=== PATIENT | female | born 1985 | race African-American/Black ===

== ENCOUNTER → 2016-08-03 | Outpatient (CLI) | payer OTHER ==
--- NOTE | 2016-08-03 14:30 | REP ---
Clinical: Anatomical evaluation. Comparison: 07/13/2016 . Findings: Examination demonstrates diamniotic dichorionic twin gestation. Placenta for twin A is noted posteriorly and grade zero, and placenta for twin B is noted anteriorly and grade zero. There is no evidence for placenta previa or abruption. Cervix measures 4 cm length and appears closed. Gestational age by first ultrasound 19 weeks 1 day with NEFTALY 12/27/2016. Twin A: Cephalic presentation along the maternal midline closest to the internal os. motion is appreciated. Amniotic fluid volume is subjectively normal. heart rate equals 153 beats per minute. Age by current biometrical measurements equals 19 weeks 4 days. Estimated weight equals 312 grams (72nd percentile). Anatomical assessment demonstrates normal cranium, choroid plexus, cavum, cerebellum/posterior fossa, lungs, four-chamber heart, diaphragm, stomach, cord insertion, bladder, spine, and lower extremities. Limited evaluation of the facial features, cardiac ventricular outflow tracts, three-vessel cord, kidneys, and upper extremities noted. Twin B: Transverse lie closest to the fundus. motion is appreciated. Amniotic fluid volume is subjectively normal. heart rate equals 150 beats per minute. Age by current biometrical measurements equals 18 weeks 6 days. Estimated weight equals 281 grams (55th percentile). Anatomical assessment demonstrates a normal cranium, cord plexus, cavum, lungs, four-chamber heart, diaphragm, cord insertion, bladder, and extremities. Limited evaluation of the cerebellum/posterior fossa, facial features, cardiac ventricular outflow tracts, stomach, three-vessel cord, kidneys and spine noted. Impression: Diamniotic dichorionic twin gestations demonstrating concordant appropriate growth. No gross abnormalities are identified. Anatomical limitations as detailed above may warrant reevaluation and follow-up. Signed by William Mcbride MD 08/03/2016 02:21 P
== END ==
LOC: M RAD 13:03
PROVIDERS: ATTEND Advanced Practice Midwife
DX: Z36 Encounter for antenatal screening of mother (principal); Z3A.19 19 weeks gestation of pregnancy

== ENCOUNTER → 2016-09-19 | Outpatient (CLI) | payer OTHER ==
--- NOTE | 2016-09-19 13:20 | REP ---
Obstetric sonography: Multiple gestation. History: Twin gestation 20+ weeks, followup anatomy. Comparison study August 03, 2016 Findings: Scanning again demonstrates diamniotic dichorionic twin gestation. A posterior placenta is seen for twin A and an anterior placenta is seen for twin B, grade 1. No evidence of previa. Closed cervical length is 4.0 cm measured transabdominally. There has been concordant and appropriate interval growth. Twin A is vertex in position along the maternal midline. Twin B is transverse with the head to the maternal right. Amniotic fluid is subjectively normal. Deepest pocket of amniotic fluid around twin A measures 5.7 cm, that around twin B 6.7 cm. No extrauterine abnormality is observed. No anomaly is seen. The following anatomic structures are identified for twin A and felt to be unremarkable: cranium, choroid plexus, cavum, cerebellum and posterior fossa, face and profile, lungs, diaphragm, left-sided stomach, abdominal wall cord insertion, three-vessel cord, kidneys and bladder, spine, upper and lower extremities. heart views are less than optimally achieved for twin A today. Four-chamber heart and left ventricular outflow tract views were achieved previously. The following anatomic structures are identified in twin B and are felt to be unremarkable today: cranium, choroid plexus, cavum, cerebellum and posterior fossa, diaphragm, left-sided stomach, abdominal wall cord insertion, three-vessel umbilical cord, kidneys and bladder, spine, upper and lower extremities. heart and nose and lip views and lungs are less than optimally seen today due to position. Four-chamber heart view and lungs were achieved previously for twin B. Biometry chart twin A: BPD 6.5 cm 26 weeks 1 day Head circumference 24.5 cm 26 weeks 4 days Abdominal circumference 22.0 cm 26 weeks 3 days Femur length 5.0 cm 26 weeks 5 days Humeral length 4.7 cm 27 weeks 3 days HC/AC ratio normal 1.11 Cephalic index normal 0.72. Estimated weight 950 grams, 2 pounds 1 ounce, 63rd percentile. heart rate 139 beats per minute. BLANCO 5.7. S/D ratio in the umbilical cord artery by Doppler 3.22. Biometry chart twin B: BPD 6.3 cm 25 weeks 4 days Head circumference 23.7 cm 25 weeks 6 days Abdominal circumference 23.0 cm 27 weeks 2 days Femur length 4.8 cm 26 weeks 2 days Humeral length 4.5 cm 26 weeks 3 days HC/AC ratio normal 1.03. Cephalic index normal 0.74. Estimated weight 970 grams, 2 pounds 2 ounces, 67th percentile. heart rate 150 beats per minute. BLANCO 6.7 cm. S/D ratio in the umbilical cord artery by Doppler normal 3.07. Impression: Viable twin intrauterine gestation at 25 week 6 days by comparison with prior sonography. Appropriate and concordant interval growth. cardiac views less than optimally seen in both fetuses and less than optimal visualization of fetus B face and lungs. Otherwise, anatomic survey is felt to be complete. Signed by Alfie Rincon MD 09/19/2016 03:35 P
== END ==
LOC: M RAD 10:34
PROVIDERS: ATTEND Obstetrics & Gynecology
DX: Z36 Encounter for antenatal screening of mother (principal); Z3A.25 25 weeks gestation of pregnancy

== ENCOUNTER 2016-10-13 18:13 | Outpatient (CLI) | payer OTHER ==
[~2016-10-13] VITALS: Ht 167.6 cm; Wt 120.0 kg
[2016-10-13] MEDS ORDERED: CYCLOBENZAPRINE PO (18:47)
[2016-10-13] MEDS ORDERED: ACET50TA PO (18:47)
[2016-10-13] MEDS ORDERED: PRENTAB9 PO (18:47)
[2016-10-13 18:56] VITALS: BP 131/74
[2016-10-13 21:38] LABS: MEAN CORPUSCULAR HEMOGLOBIN 29.2 pg (27.0-33.0); MEAN CORPUSCULAR HGB CONC 35.2 g/dl (32.0-36.5); WHITE BLOOD COUNT 10.1 K/mm3 (4.0-10.0)
[2016-10-13 22:05] LABS: ALBUMIN 2.8 GM/DL (3.2-5.2); ALBUMIN/GLOBULIN RATIO 0.67 (1.00-1.93); ALKALINE PHOSPHATASE 175 U/L (45-117); ALT/SGPT 38 U/L (12-78); AMYLASE 69 U/L (25-115); ANION GAP 10 MEQ/L (8-16); AST/SGOT 29 U/L (15-37); BILIRUBIN,TOTAL 0.3 MG/DL (0.2-1.0); BLOOD UREA NITROGEN 3 MG/DL (7-18); CALCIUM LEVEL 8.6 MG/DL (8.5-10.1); CARBON DIOXIDE LEVEL 22 MEQ/L (21-32); CHLORIDE LEVEL 106 MEQ/L (98-107); CREATININE FOR GFR 0.57 MG/DL (0.55-1.02); GLOMERULAR FILTRATION RATE > 60.0 (>60); GLUCOSE, FASTING 88 MG/DL (70-105); POTASSIUM SERUM 3.7 MEQ/L (3.5-5.1); SODIUM LEVEL 138 MEQ/L (136-145)
== END 2016-10-14 00:25 | disposition home or self-care (01) ==
LOC: M LDO 18:13
PROVIDERS: ATTEND Obstetrics & Gynecology
DX: O47.1 False labor at or after 37 completed weeks of gestation (principal); Z3A.29 29 weeks gestation of pregnancy; O30.043 Twin pregnancy, dichorionic/diamniotic, third trimester; O99.843 Bariatric surgery status complicating pregnancy, third trimester; O99.213 Obesity complicating pregnancy, third trimester; O99.013 Anemia complicating pregnancy, third trimester; D57.3 Sickle-cell trait; Z86.718 Personal history of other venous thrombosis and embolism

== ENCOUNTER → 2016-11-14 | Outpatient (CLI) | payer OTHER ==
[~2016-11-14] MED LIST: ACET50TA PO; CYCLOBENZAPRINE PO; PRENTAB9 PO
--- NOTE | 2016-11-14 15:41 | REP ---
ultrasound, stat request for nonreactive nonstress test, biophysical profile: There is a twin gestation. Twin A : heart rate is 149 beats per minute. Cervix is 3.4 cm length. biophysical profile: breathing 2, movement 2, amniotic fluid volume 2, tone 2, total 8/8 Umbilical artery Doppler assessment: SD ratio 2.93. Resistive index of 0.66. Diastolic flow velocity 24.2 cm/sec. These values are normal. Based on the first ultrasound during this gestation gestational age is 33 weeks 6 days. Twin B: heart rate is 147 beats per minute. Cervix is 3.4 cm length. biophysical profile: breathing 2, movement 2, tone 2, amniotic fluid volume 2, total 8/8. Umbilical artery Doppler assessment: SD ratio 2.84, resistive index of 0.65, Diastolic flow velocity 12.7 cm/sec (normal is greater than 10.0). Twin A the amniotic fluid, deepest pocket is 3.2 cm, and twin B amniotic fluid deepest pocket is 2.9 cm. Twin A placenta is posterior. Twin B placenta is anterior. Both placentas demonstrate grade 2 maturity. There is no evidence of placenta previa. Signed by Zaire Proctor MD 11/14/2016 03:32 P
== END ==
LOC: M RAD 13:49
PROVIDERS: ATTEND Obstetrics & Gynecology
DX: Z36 Encounter for antenatal screening of mother (principal); Z3A.33 33 weeks gestation of pregnancy

== ENCOUNTER 2016-11-28 09:56 | Inpatient (IN) | payer OTHER ==
[2016-11-28] VITALS (10 sets, daily range): BP systolic 156–190; BP diastolic 77–98
[~2016-11-28] VITALS: Ht 165.1 cm; Wt 118.0 kg
[2016-11-28] MEDS ORDERED: LOVE1INJ SC (11:46)
[2016-11-28] MEDS ORDERED: LACTATED RINGER'S 1000 ML IV STA (12:01)
[2016-11-28] MEDS ORDERED: BICITRA 30ML SOLN UDC PO ONE (12:15)
[2016-11-28] MEDS ORDERED: CALCIUM GLUCONATE 1,000 MG in D5W MINI-BAG PLUS 100 ML IV PRN (12:15)
[2016-11-28] MEDS ORDERED: MAG Sulf (L&D) 4 GM/100 ML 4 GM in APPROPRIATE DILUENT 1 EA IV ONE (12:15)
[2016-11-28] MEDS: MAG Sulf (OBGYN) 20GM/500ML 20,000 MG in APPROPRIATE DILUENT 1 EA IV SCH ×3 (12:49→20:59)
--- NOTE | 2016-11-28 12:49 | HPEPDOC ---
Obstetrical History & Physical General Date of Admission November 28, 2016 at 11:30 History of Present Illness 30 y/o at 35+2 with IVF twins presents for NST and elevated BP's noted. No VB/LOF/ctx's. Pos FM. This AM had Pre-E labs based on elevated BP's noted at last visit on 3MAY. Denies NEWTON/vis changes/RUQ pain. Lab review shows that she has early onset lab changes consistent with Pre-E. Complicated Problem list: -Obesity, is on daily ASA 81 mg -Very poor historian -IVF Twins, di/di (male/female), last grth scan 19APR showed A: 63%ile and B: 45 %ile. Has been getting APFT consisting of Cat 1 NST's or a BPP weekly ( frequently needed due to obesity, difficulty monitoring). Today TAUS shows A: Vtx, B: Breech. Both infants active on US and NST is Cat 1 X2. -Unclear h/o clots/DVT??? Had a gastric bypass in 2006 and 4 months thereafter developed "clots" for which she was rx'd lovenox but since then has been hit/ miss on her therapy. States she gets them "all the time" because she gets red spots on her leg and they are sometimes painful. Has been maintained on Lovenox 40 mg qday throughout her and the plan was to transition her to heparin at 36 weeks prior to her scheduled IOL or at 38 wks. Last injection was 3 days ago becuase "she ran out." She states she forgot to tell her last provider that she needed more. -H/O Gastric bypass in 2006 -Sickle trait, is neg -A1 Gest DM. Blood sugar review over the last 2 weeks is excellent. 27feb A1C : 5.11 -New dx of CHTN with SI Pre-E (severe features only lab abnormalities) made today based on persistent mild range elevated BP's now and elevated BP's on 3MAY , 8MAR, 5JAn. Abnormal labs today are 24 hr UP: 1,023, Uric acid 6.8 (hi), AST 51 and ALT 79 (both barely hi). Nl labs: Hct 32.9, Plt 182, LDH 580, Cr 0.7. Plan to start Mag Sulfate until delivered Information Provided By: Patient Care Care: Good Care Dating Final EDC: Dec 31, 2016 Final EDC by: LMP (multiple ultrasounds throughout) Past Medical History Past Obstetrical History : Past Obstetrical History: Multigravida DIRECTOR APPOINTMENT History: Spontaneous (1 documented in 2015, 1 documented in 2014) Past Medical History Medical History see problem list above Surgical History: Other (Gastric bypass 2007, kidney surgery for reflux age 15) Family History Significant Family History: No pertinent family hx Social History Marital Status: Family situation: Spouse/partner home Psychosocial History: No pertinent psych hx * Smoker: non-smoker Alcohol: Denies Drugs: denies Abuse Violence Screening Have you been hit/kicked/slapp: No Have you been sexually assault: No Imunizations Tdap status: current Influenza Status: current Allergies Coded Allergies: No Known Allergies (Unverified , 10/13/16) Medications Scheduled Multivitamins/ ( 27-0.8 mg) 1 Tab Tab, 1 TAB PO DAILY Scheduled PRN Acetaminophen (Mapap) 500 Mg Tab, 500 MG PO DAILY PRN for PAIN SCALE 1-5 Physical Examination Physical Examination GENERAL: Alert and oriented times three. ABDOMEN: Gravid and non-tender to touch. FETI: A: Vtx and B: breech by limited bedside US today. HEART RATE: Regular rate and rhythm. LUNGS: Clear to auscultation (CTA). EXTREMITIES: No edema. No clonus. Deep tendon reflexes (DTRs) 1+ Laboratory Data Urine Culture: No Growth Pertinent Laboratoy Data Blood Type: B+ RBC Antibody Screen: Negative HIV: Negative Hepatitis B: Negative Hepatitis C: Unknown Rapid Plasma Reagin: Nonreactive Rubella: Immune Varicella: Nonreactive Chlamydia/Gonorrhea: Negative Group B Streptococcus: Unknown Quad Screen Test: Declined Cystic Fibrosis: Declined Glucose Tolerance Test: 102 Anatomy Ultrasound Normal Anatomy: Yes Placenta Previa: No Other Ultrasounds see problem list above for latest US results, had a grth scan every 4-6 wks per [facility] recs. Steroid Therapy Steroid Therapy: No Vaginal Examination Presentation: Cephalic presentation (A, B: Breech) Assessment Variability: Moderate Accelerations: Positive Decelerations: None Tocometer Contractions: Yes Frequency: irregular Assessment/Plan Assessment Plan See problem list above Admit and orient. Ate at 0900. Flight Test Engineer and consent for indicated after 6-8 hrs since last meal Labs and intravenous (IV) per unit protocol. Lactated Ringers (LR): Bolus 500 mL, then at 125 mL/hr. Plan on daily Lovenox and ASA restart 12-24 hrs after depending on case findings. Bicitra, Ancef 2 gm IV preop Spoke with Anesth reservation manager Dr Guidry and Dr Garibay, Peds due to pending NICU admissions Rpt Pre-E labs tomorrow. Mag sulfate 4/2, will cont until 24 hrs postop. Sessions MD SESSIONS,JEANNA Pillai MD November 28, 2016 12:49
[2016-11-28 12:50] LABS: MEAN CORPUSCULAR HEMOGLOBIN 28.5 pg (27.0-33.0); MEAN CORPUSCULAR VOLUME 86.4 fl (80.0-96.0); RED CELL DISTRIBUTION WIDTH 13.2 % (11.5-14.5); WHITE BLOOD COUNT 7.8 K/mm3 (4.0-10.0)
[2016-11-28 12:56] LABS: ALT/SGPT 68 U/L (12-78); ANION GAP 7 MEQ/L (8-16); AST/SGOT 56 U/L (15-37); BILIRUBIN,TOTAL 0.3 MG/DL (0.2-1.0); BLOOD UREA NITROGEN 4 MG/DL (7-18); CALCIUM LEVEL 8.8 MG/DL (8.5-10.1); CARBON DIOXIDE LEVEL 24 MEQ/L (21-32); CHLORIDE LEVEL 109 MEQ/L (98-107); GLOMERULAR FILTRATION RATE > 60.0 (>60); GLUCOSE, FASTING 70 MG/DL (70-105); POTASSIUM SERUM 4.3 MEQ/L (3.5-5.1); SODIUM LEVEL 140 MEQ/L (136-145); URIC ACID 6.9 MG/DL (2.6-6.0)
[2016-11-28] MEDS: LR 1,000 ML IV SCH ×2 (13:19→20:01)
[2016-11-28] MEDS ORDERED: ACETAMINOPHEN TAB 650MG DOSE (2X325MG) PO PRN (14:00)
[2016-11-28] MEDS ORDERED: OXYTOCIN INJ 10 UNITS/ML VIAL (J2590) As Ordered ONE (16:32)
[2016-11-28] MEDS ORDERED: MORPHINE PRES-FREE INJ 10 MG/10 ML VIAL (J2274) As Ordered ONE (16:33)
[2016-11-28] MEDS ORDERED: METOCLOPRAMIDE INJ 10MG/2ML VIAL (J2765) IV PRN ×2 (17:15→18:45)
[2016-11-28] MEDS ORDERED: ONDANSETRON 4MG/2ML VIAL (J2405) IV PRN ×2 (17:15→18:45)
[2016-11-28] MEDS ORDERED: NALOXONE INJ 0.4 MG/1 ML VIAL (J2310) IV PRN ×2 (17:15)
[2016-11-28] MEDS ORDERED: OXYTOCIN DRIP 30 UNITS in APPROPRIATE DILUENT 1 EA IV SCH (18:33)
[2016-11-28] MEDS ORDERED: OXYTOCIN 30 UNITS IN 0.9% NaCl 500ML IV BAG (J2590) As Ordered ONE (18:41)
[2016-11-28] MEDS ORDERED: MEASLES,MUMPS,RUBELLA VACCINE INJ (MMR-II) (90707) SC SCH (18:45)
[2016-11-28] MEDS ORDERED: RHOGAM 300 MCG (1500 IU) INJ (J2790) IM SCH (18:45)
[2016-11-28] MEDS ORDERED: LR 1,000 ML IV SCH (18:45)
[2016-11-28] MEDS ORDERED: MEPERIDINE INJ 25 MG/ML VIAL (J2175) IV PRN (18:45)
[2016-11-28] MEDS ORDERED: PERCOCET 5MG/325MG TAB PO PRN (18:45)
[2016-11-28] MEDS ORDERED: fentaNYL 100 MCG/2 ML INJECTION (J3010) IV PRN (18:45)
[2016-11-28] MEDS ORDERED: diphenhydrAMINE INJ 50MG/ML VIAL (J1200) IV PRN (18:45)
[2016-11-28] MEDS ORDERED: KETOROLAC 30 MG/ML VIAL (J1885) IV SCH (20:00)
[2016-11-28] MEDS: DOCUSATE SODIUM 100 MG CAP PO SCH (21:00)
[2016-11-28] MEDS ORDERED: LABETALOL 200 MG TAB PO SCH (21:00)
--- NOTE | 2016-11-28 22:23 | IPNPDOC ---
Text Note Date of Service The patient was seen on 11/28/16. NOTE I was paged and persistent BP's just in the severe range. Will give 5 mg hydralazine IV and then also start labetalol 200 mg BID PO in 1-2 hrs. Will reassess in a few hours. Sessions Manuel WANG, I+O VSManuel I+O Laboratory Tests 11/28/16 12:29 Red Blood Count 3.90 L, Mean Corpuscular Volume 86.4, Mean Corpuscular Hemoglobin 28.5, Mean Corpuscular Hemoglobin Concent 33.0, Red Cell Distribution Width 13.2, Calcium Level 8.8, Aspartate Amino Transf (AST/SGOT) 56 H, Alanine Aminotransferase (ALT/SGPT) 68, Lactate Dehydrogenase 285 H, Total Bilirubin 0.3, Uric Acid 6.9 H SESSIONS,JEANNA Pillai MD November 28, 2016 22:23
[2016-11-28] MEDS ORDERED: hydrALAZINE INJ 20 MG/ML VIAL IV ONE ×2 (22:30→23:15)
[2016-11-28] MEDS: NALBUPHINE HCL 10 MG/ML AMP (J2300) IV PRN (22:46)
[2016-11-29] VITALS (16 sets, daily range): BP systolic 104–168; BP diastolic 54–91
[2016-11-29] MEDS: KETOROLAC 30 MG/ML VIAL (J1885) IV SCH ×4 (00:28→18:31)
[2016-11-29 05:21] LABS: ALT/SGPT 45 U/L (12-78); ANION GAP 8 MEQ/L (8-16); AST/SGOT 39 U/L (15-37); BILIRUBIN,TOTAL 0.3 MG/DL (0.2-1.0); BLOOD UREA NITROGEN 4 MG/DL (7-18); CALCIUM LEVEL 7.2 MG/DL (8.5-10.1); CARBON DIOXIDE LEVEL 26 MEQ/L (21-32); CHLORIDE LEVEL 106 MEQ/L (98-107); CREATININE FOR GFR 0.65 MG/DL (0.55-1.02); GLOMERULAR FILTRATION RATE > 60.0 (>60); GLUCOSE, FASTING 105 MG/DL (70-105); MEAN CORPUSCULAR HEMOGLOBIN 28.8 pg (27.0-33.0); MEAN CORPUSCULAR HGB CONC 32.9 g/dl (32.0-36.5); MEAN CORPUSCULAR VOLUME 87.6 fl (80.0-96.0); POTASSIUM SERUM 4.2 MEQ/L (3.5-5.1); RED CELL DISTRIBUTION WIDTH 13.3 % (11.5-14.5); SODIUM LEVEL 140 MEQ/L (136-145); URIC ACID 6.9 MG/DL (2.6-6.0); WHITE BLOOD COUNT 7.4 K/mm3 (4.0-10.0)
[2016-11-29] MEDS: LR 1,000 ML IV SCH (06:00)
--- NOTE | 2016-11-29 06:25 | IPNPDOC ---
Text Note Date of Service The patient was seen on 11/29/16. NOTE POD1 prog note S/P PCD at 35+2. States feeling well, no severe pain issues, controlled. Has not seen her babies yet, is still on Mag sulfate and she had several hours of severe range BP 's despite several doses of IV Hydralazine until her PO Labetalol 200 TID kicked in. No heavy VB. No RUQ pain, severe NEWTON or N/V. No CP/LP/SOB. Vitals stable since early AM. UO 50-125/hr since delivery RRR CTAB Inc CDI, bandage removed Ext 2+ edema, DTR's 1+ no clonus Labs this AM Hct 26, Plt 188, LDH 245, AST 39 (all nl now) a/p: Doing well. Now 12 hrs postop. Cont Mag sulfate until 24 hrs postop. Lovenox to restart at 0900. Likely d/c in 48 hrs this TH. Pre-E and postop care. Sessions VS,Manuel, I+O VS, Manuel I+O Laboratory Tests 11/28/16 12:29 Red Blood Count 3.90 L, Mean Corpuscular Volume 86.4, Mean Corpuscular Hemoglobin 28.5, Mean Corpuscular Hemoglobin Concent 33.0, Red Cell Distribution Width 13.2, Calcium Level 8.8, Aspartate Amino Transf (AST/SGOT) 56 H, Alanine Aminotransferase (ALT/SGPT) 68, Lactate Dehydrogenase 285 H, Total Bilirubin 0.3, Uric Acid 6.9 H 11/29/16 04:44 Red Blood Count 2.96 L, Mean Corpuscular Volume 87.6, Mean Corpuscular Hemoglobin 28.8, Mean Corpuscular Hemoglobin Concent 32.9, Red Cell Distribution Width 13.3, Calcium Level 7.2 #L, Aspartate Amino Transf (AST/SGOT ) 39 H, Alanine Aminotransferase (ALT/SGPT) 45, Lactate Dehydrogenase 245, Total Bilirubin 0.3, Uric Acid 6.9 H Vital Signs Date Time Temp Pulse Resp B/P (MAP) Pulse Ox O2 Delivery O2 Flow Rate FiO2 11/29/16 04:35 16 113/66 (82) 11/29/16 03:15 97.1 65 11/29/16 01:00 100 Room Air I&O- Last 24 Hours up to 6 AM 11/29/16 06:00 Intake Total 2250 ml Output Total 3275 ml Balance -1025 ml SESSIONS,JEANNA Pillai MD November 29, 2016 06:25
[2016-11-29] MEDS: LABETALOL 200 MG TAB PO SCH ×3 (06:44→22:28)
[2016-11-29] MEDS ORDERED: LABETALOL 200 MG TAB PO SCH (07:00)
[2016-11-29] MEDS: MAG Sulf (OBGYN) 20GM/500ML 20,000 MG in APPROPRIATE DILUENT 1 EA IV SCH ×2 (07:26→15:06)
[2016-11-29] MEDS: PRENATAL VITAMIN TAB PO SCH (08:46)
[2016-11-29] MEDS: DOCUSATE SODIUM 100 MG CAP PO SCH ×2 (08:46→21:27)
[2016-11-29] MEDS: NALBUPHINE HCL 10 MG/ML AMP (J2300) IV PRN ×2 (08:46→15:34)
[2016-11-29] MEDS ORDERED: ENOXAPARIN 40 MG/0.4 ML SYRINGE (J1650) SC SCH (09:00)
--- NOTE | 2016-11-29 10:24 | RO ---
DATE OF PROCEDURE: 11/28/2016 PREOPERATIVE DIAGNOSES: 1. Twin gestation at 35 plus 2. 2. Preeclampsia with severe features based on blood pressures and laboratory values. POSTOPERATIVE DIAGNOSES: 1. Twin gestation at 35 plus 2. 2. Preeclampsia with severe features based on blood pressures and laboratory values. PROCEDURE: Primary delivery. SURGEON: Zaire Lilly MD MACHINE SETTER SHEET METAL: Diego Barnett DO ANESTHESIA: Spine. ESTIMATED BLOOD LOSS: 500 mL. DRAINS: 200 mL of clear urine in the Quinn catheter at the end of the procedure. FLUID REPLACED: Lactated Ringer's 1700 mL. SPECIMENS REMOVED: Placenta. INDICATION FOR PROCEDURE: Patient had a scheduled nonstress test today. A few days prior was seen in the clinic and found to have a barely elevated blood pressure. Therefore, a plan was put in place for her to do a 24 hour urine protein collection and get serum rule out preeclampsia labs this morning prior to her NST. The 24 hour urine protein showed a protein level of just over 1000, a slightly elevated uric acid, slightly elevated AST and ALT with a normal LDH and normal platelets, and hematocrit. Throughout her monitoring, she was noted to have persistently mild range elevated blood pressures with nothing over 160/110. However, many pressures greater than 140/90. Due to the new diagnosis of preeclampsia with severe features (lab values), and twin gestation with baby A vertex and baby B breech, it was recommended to undergo delivery later that day after approximately 8 hours of waiting due to her having eaten at 9:00 a.m. The patient agreed. Informed consent was obtained. All consents were signs and a plan was sent in place with anesthesia and pediatrics. DESCRIPTION OF PROCEDURE: Patient was taken to the operating room with an IV in place and magnesium running at 2 grams per hour. A Quinn catheter was already in place. A spinal anesthetic was easily obtained and the patient was placed in the dorsal supine position with a leftward tilt. She was then prepped and draped in a normal sterile fashion. A Pfannenstiel skin incision was performed after testing to determine spinal adequacy. The Pfannenstiel was carried down to the layer of the fascia which was nicked in the midline and extended bilaterally the extent of the skin incision. The superior aspect of the fascial incision was tented up and the underlying rectus muscles were dissected off sharply. This was repeated inferiorly without difficulty. The rectus muscles were in the midline. The peritoneum was grasped by the surgeon and quick intraperitoneal digital exploration revealed no scar tissue present. A stretching maneuver created an adequate peritoneal window. Bladder blade was placed and bladder flap was easily created, and low transverse uterine incision was performed and stretched to adequacy. Amniotomy was performed for baby A and clear fluid was noted. The vertex was nonengaged and easily delivered with fundal pressure. The was noted to be in good shape with scores of 9 and 9, and after the cord was clamped with a single clamp the vigorous was handed off to the awaiting resuscitation team. The amnion of baby B had obviously clear fluid confirmed by Allis clamp rupture of membranes. I reached internally, found one foot, was able to find the second foot and delivered them through the incision to the level of the axilla with the occiput anterior. Both arms were slipped across the chest and we were able to deliver to the infants head and keep the head flexed with fundal pressure we were easily able to delivery baby B. This was also in good shape with great tone and a spontaneous cry. Two clamps were placed on the proximal part of the cord, the cord was transected and the vigorous was handed off to the awaiting resuscitation team. Both placentas were then delivered without difficulty using traction, fundal massage and with pitocin running wide open. The fundus quickly firmed and the uterus was delivered through the abdominal incision and placed on the abdomen and wrapped in a warm sponge. The bladder blade was replaced and the hysterotomy was closed from left to right with running locked suture of #0 Vicryl. #0 Monocryl was then used to imbricate from left to right without difficulty. There was a small 1-2 cm fibroid on the posterior aspect of the uterine wall and a small amount of que fallopian tube adhesive disease, however the fallopian tube and the ovaries did appear normal and healthy. Irrigation was performed behind the uterus and all the clots and debris were suctioned. The uterus was returned to the abdomen and the pericolic gutters were cleared in a similar fashion. The uterine incision was then inspected and found to be hemostatic. The rectus bellies were inspected and a small bleeder on the left side was made to be hemostatic with a figure-of-8 times two. The peritoneum was closed with a running #2-0 Vicryl from superior to inferior without difficulty. After hemostasis was confirmed of the rectus bellies bilaterally, the fascia was closed from left to right with a running suture of #0 Vicryl without difficulty. The subcutaneous tissue was then copiously irrigated and closed with a #2-0 Vicryl without difficulty. Skin was closed with #4-0 Monocryl in a subcuticular fashion from left to right without difficulty. Steri-Strips were placed and a pressure dressing well. Bimanual exam confirmed the uterus at -2 position, firm , and the cervix and vagina were cleared of all clots and debris. The patient was transferred to the PACU in stable condition and all counts were correct including sponge, needle and instruments. LILIA
[2016-11-29] MEDS: ENOXAPARIN 40 MG/0.4 ML SYRINGE (J1650) SC SCH (16:54)
[2016-11-29] MEDS ORDERED: NALBUPHINE HCL 10 MG/ML AMP (J2300) IV PRN (22:45)
[2016-11-29] MEDS: PERCOCET 5MG/325MG TAB PO PRN (23:57)
[2016-11-30] MEDS ORDERED: IBUPROFEN 800 MG TAB PO SCH (02:00)
[2016-11-30 02:28] VITALS: BP 132/59
[2016-11-30 06:26] VITALS: BP 135/77
[2016-11-30] MEDS: LABETALOL 200 MG TAB PO SCH ×3 (06:29→22:34)
--- NOTE | 2016-11-30 07:10 | IPNPDOC ---
Text Note Date of Service The patient was seen on 11/30/16. NOTE POD2 prog note S/P PCD at 35+2. States feeling well, no severe pain issues, controlled. Has seen her babies and is nursing, on PO Labetalol 200 TID. No heavy VB. No RUQ pain, severe NEWTON or N/V. No CP/LP/SOB. Vitals stable Ut at U-3 Inc CDI Ext improving edema a/p: Doing well. On Lovenox. Likely d/c tomorrow. routine postop care. Encouraged ambulation to the NICU Sessions Manuel WANG, I+O VSManuel, I+O Vital Signs Date Time Temp Pulse Resp B/P (MAP) Pulse Ox O2 Delivery O2 Flow Rate FiO2 11/30/16 06:29 87 135/71 11/30/16 06:26 99.0 11/30/16 02:28 16 11/29/16 18:00 99 11/29/16 11:30 Room Air I&O- Last 24 Hours up to 6 AM 11/30/16 05:59 Intake Total 1460 ml Output Total 1630 ml Balance -170 ml SESSIONS,JEANNA Pillai MD November 30, 2016 07:10
[2016-11-30] MEDS: PRENATAL VITAMIN TAB PO SCH (08:32)
[2016-11-30] MEDS: DOCUSATE SODIUM 100 MG CAP PO SCH ×2 (08:32→21:38)
[2016-11-30 10:00] VITALS: BP 135/81
[2016-11-30 15:30] VITALS: BP 132/61
[2016-11-30] MEDS: PERCOCET 5MG/325MG TAB PO PRN ×2 (16:06→21:38)
[2016-11-30] MEDS: ENOXAPARIN 40 MG/0.4 ML SYRINGE (J1650) SC SCH (16:56)
[2016-11-30 18:00] VITALS: BP 149/70
[2016-11-30 22:31] VITALS: BP 131/61
[2016-12-01] MEDS: PERCOCET 5MG/325MG TAB PO PRN ×3 (02:10→13:09)
[2016-12-01 06:00] VITALS: BP 129/72
[2016-12-01] MEDS: LABETALOL 200 MG TAB PO SCH ×2 (06:35→15:01)
[2016-12-01 07:27] LABS: MEAN CORPUSCULAR HEMOGLOBIN 28.4 pg (27.0-33.0); MEAN CORPUSCULAR HGB CONC 32.3 g/dl (32.0-36.5)
[2016-12-01] MEDS: DOCUSATE SODIUM 100 MG CAP PO SCH (09:33)
[2016-12-01] MEDS: PRENATAL VITAMIN TAB PO SCH (09:33)
[2016-12-01 10:00] VITALS: BP 132/67
--- NOTE | 2016-12-01 11:33 | IPNPDOC ---
Text Note Date of Service The patient was seen on 12/01/16. NOTE POD3 prog note S/P PCD at 35+2. Pre-E with severe features and twins. States feeling well, no severe pain issues, controlled. The area on her abdomen (likely hematoma) is vat tender, but not worsening and not getting subjectively bigger. Is nursing babies in the NICU, and on PO Labetalol 200 TID which is controlling her BP's. No heavy VB. No RUQ pain, severe NEWTON or N/ V. No CP/LP/SOB. Vitals stable Ut at U-3 RAQUET BALL SIZED TENDER AREA NOTED LAST 2 DAYS BELOW AND TO THE RIGHT OF THE UMBILICUS, THE SAME SIZE YESTERDAY, DEFINITELY NOT BIGGER INCISION MOSTLY CDI, SMALL AREA WEEPING ON LEFT, NO INDURATION BELOW IT, STILL HAS THE MAXIPAD OVER THE INCISION INSTRUCTED Ext: still improving edema Interval CBC since starting Lovenox todaywith HCT 20.9, possible blood loss into her stable abdominal wall hematoma. a/p: No imaging for this liekly hematoma needed as is not clinically expanding although today has borderline HCT, may need to be transfused. As has stable vitals and nl energy and is still able to walk to the NICU and back, at this time will not transfuse, however rpt CBC at 1600 today ordered. If HVT dips below 20 or if she becomes symptomatic (light-headed, dizzy, too low energy to visit babies), would likely order minimum 2 units PRBC's. O/W, routine postop care. Watching closely and d/w RN. Sessions Manuel WANG, I+O Manuel HOWELL I+O Laboratory Tests 12/01/16 07:01 Red Blood Count 2.38 L, Mean Corpuscular Volume 88.0, Mean Corpuscular Hemoglobin 28.4, Mean Corpuscular Hemoglobin Concent 32.3, Red Cell Distribution Width 14.0 Vital Signs Date Time Temp Pulse Resp B/P (MAP) Pulse Ox O2 Delivery O2 Flow Rate FiO2 12/01/16 07:30 16 12/01/16 06:35 86 129/72 12/01/16 06:00 97.6 Room Air 11/30/16 22:31 98 SESSIONS,JEANNA Pillai MD December 01, 2016 11:33
[2016-12-01 14:45] VITALS: BP 143/78
[2016-12-01 15:01] VITALS: BP 143/78
[2016-12-01 16:46] LABS: MEAN CORPUSCULAR HEMOGLOBIN 28.7 pg (27.0-33.0); MEAN CORPUSCULAR HGB CONC 33.5 g/dl (32.0-36.5); MEAN CORPUSCULAR VOLUME 85.6 fl (80.0-96.0); RED CELL DISTRIBUTION WIDTH 14.3 % (11.5-14.5)
[2016-12-01] MEDS: ENOXAPARIN 40 MG/0.4 ML SYRINGE (J1650) SC SCH (17:34)
[2016-12-01 17:40] VITALS: BP 119/83
--- NOTE | 2016-12-01 18:01 | DS.PDOC ---
Discharge Summary General Date of Admission November 28, 2016 at 11:30 Date of Discharge [id number] Discharge Summary PROCEDURES PERFORMED DURING STAY: delivery at 35+2 ADMITTING DIAGNOSES: 1.Pre-Term pre-eclampsia with severe features. 2. Known Di/Di twins 3. Gestational Diabetes 5. History of DVT DISCHARGE DIAGNOSES: 1. Pre-Eclampsia 2. Anemia 3. delivery 4. Gestational Diabetes 5. History of DVT HOSPITAL COURSE: Admitted after lab results and persistent abnormal blood pressures showed severe pre-term pre-eclampsia, known di/di twins. Underwent an uncomplicated delivery. Started on Labetalol 200 mg every 8 hours the night of her surgery, also needed IV anti-hypertensives for several hours. This controlled her blood pressures the rest of her admission. She was also started on Lovenox 40 mg every day due to her history of DVT. Her blood sugars before and after the surgery were normal. On postop day 3 her HCT was 20.9 and this was repeated 8 hours later and found to be 21.4. She never had significant anemia symptoms. DISCHARGE MEDICATIONS: Standard postop meds, dispensed. Motrin, Percocet, Docusate, Lanolin, Labetalol, Lovenox, Iron, declines control Physical exam: see note from this morning LABORATORY DATA: Please see below. ACTIVITY: as tolerated. Nothing in vagina for 6 weeks. No bathing for 4 weeks , shower only. No driving for 2 weeks. DIET: regular DISPOSITION:stable TIME SPENT ON DISCHARGE: Greater than 15 minutes. Follow-up: 1 week for blood pressure check. 2 weeks for incision and blood pressure check. Sessions Vital Signs/I&Os Vital Signs Date Time Temp Pulse Resp B/P (MAP) Pulse Ox O2 Delivery O2 Flow Rate FiO2 12/01/16 15:01 93 143/78 12/01/16 14:45 98.6 20 12/01/16 06:00 Room Air 11/30/16 22:31 98 Laboratory Data CBC/BMP Laboratory Tests 12/01/16 07:01 Red Blood Count 2.38 L, Mean Corpuscular Volume 88.0, Mean Corpuscular Hemoglobin 28.4, Mean Corpuscular Hemoglobin Concent 32.3, Red Cell Distribution Width 14.0 12/01/16 16:17 Red Blood Count 2.50 L, Mean Corpuscular Volume 85.6, Mean Corpuscular Hemoglobin 28.7, Mean Corpuscular Hemoglobin Concent 33.5, Red Cell Distribution Width 14.3 Discharge Medications Scheduled Multivitamins/ ( 27-0.8 mg) 1 Tab Tab, 1 TAB PO DAILY, (Reported ) Scheduled PRN Acetaminophen (Mapap) 500 Mg Tab, 500 MG PO DAILY PRN for PAIN SCALE 1-5, ( Reported) Allergies Coded Allergies: No Known Allergies (Unverified , 10/13/16) SESSIONS,JEANNA Pillai MD December 01, 2016 18:01
[2016-12-01] MEDS ORDERED: LOVE1INJ SC (18:30)
[2016-12-01] MEDS ORDERED: COLA100C3 PO (18:30)
[2016-12-01] MEDS ORDERED: OXYC1TAB23 PO (18:30)
[2016-12-01] MEDS ORDERED: LABE10TAB PO (18:30)
== END 2016-12-01 18:50 | disposition home or self-care (01) | DRG 765 ==
LOC: M LDO 09:56 → M LDI 11:30 → M OBS 20:06
PROVIDERS: ADMIT Obstetrics & Gynecology; ATTEND Obstetrics & Gynecology
PROC: 10D00Z1 Extraction of Products of Conception, Low, Open Approach (ICD-10-PCS; principal; 2016-11-28 17:26)
DX: O14.14 Severe pre-eclampsia complicating childbirth (principal); O30.043 Twin pregnancy, dichorionic/diamniotic, third trimester; Z37.2 Twins, both liveborn; Z3A.35 35 weeks gestation of pregnancy; O24.420 Gestational diabetes mellitus in childbirth, diet controlled; O32.1XX2 Maternal care for breech presentation, fetus 2; O99.213 Obesity complicating pregnancy, third trimester; E66.9 Obesity, unspecified; O99.843 Bariatric surgery status complicating pregnancy, third trimester; Z86.718 Personal history of other venous thrombosis and embolism; Z79.01 Long term (current) use of anticoagulants